=== PATIENT | female | born 1965 | race Caucasian/White ===

== ENCOUNTER 2016-11-21 11:40 | Outpatient (CLI) ==
[2016-08-22 18:55] VITALS: BMI 22.6
--- NOTE | 2016-11-21 13:00 | DI ---
Examination: Two radiographic images of the chest. Comparison: 07/24/2016. Reason for study: Cough and weakness. FINDINGS: No pneumothorax, pleural effusion, focal consolidation. The cardiac silhouette is not en larged. Mild degenerative disease is seen in the thoracic spine. Impression: No acute cardiopulmonary findings.
== END 2016-11-21 11:41 | disposition home or self-care (01) ==
LOC: RAD 11:40
PROVIDERS: ATTEND Family Medicine
DX: R05 Cough (principal); R53.1 Weakness

== ENCOUNTER 2017-01-21 04:38 | Outpatient (CLI) ==
[2017-01-20 14:40] VITALS: BMI 21.7
== END 2017-01-21 04:39 ==
LOC: AMBL 04:38
PROVIDERS: ATTEND Emergency Medicine
DX: J18.9 Pneumonia, unspecified organism (principal)

== ENCOUNTER 2017-04-02 22:11 | Emergency (ER) ==
[2017-04-02 22:13] VITALS: BMI 21.7
[2017-04-02 22:23] VITALS: BP 122/83; TEMP 99.1
[2017-04-02] MEDS ORDERED: PERCOCET 10-325 PO STA (22:33)
--- NOTE | 2017-04-02 22:36 | ED.PDOC ---
General ED Provider: Dr. ALEJANDRA JEFF Chief Complaint: Non-specific Complaint Stated Complaint: pATIENT RAN OUT OF HER oXYCODONE,she did not get to see Dr CHAIREZ @ [address], on 03/26-. needs some help with pain Time Seen by Physician: 22:33 Mode of Arrival: Walk-In Information Source: Patient Primary Care Provider: TANO MIN Nursing and Triage Documentation Reviewed and Agree: Yes Musculoskeletal Complaint Exam - Back Pain Complaint/Exam Mechanism of Injury: Reports: No known trauma Symptoms Are: Still present Timing: Constant Episodes Lasting: Hours Initial Severity: Severe Current Severity: Moderate Location: Reports: Discrete Character: Reports: Aching, Throbbing Aggravating: Reports: Movements, Lifting Alleviating: Reports: None Associated Signs and Symptoms: Denies: Swelling, Redness, Bruising, Fever, Weakness, Numbness, Tingling, Abdominal pain, Flank pain, Bladder incontinence, Bowel incontinence, Weight loss, Pain with weight bearing Related History: Reports: Similar episode TAD Risk Factors: Reports: None AAA Risk Factors: Reports: None Cauda Equina Risk Factors: Reports: None Epidural Abcess Risk Factors: Reports: None Related Surgical History: Reports: None Focal Tenderness: Yes Paraspinal Muscle Tenderness: Yes Paraspinal Muscle Spasm: Yes Scoliosis: No Lordosis: No SLR Test: Right Positive, Left Negative Focal Weakness: Present: None Focal Sensory Loss: Present: None Gait: Present: Normal Differential Diagnoses: Herniated Disk, Strain Review of Systems - Review Of Systems Constitutional: Reports: No symptoms Eyes: Reports: No symptoms Ears, Nose, Mouth, Throat: Reports: No symptoms Respiratory: Reports: No symptoms Cardiac: Reports: No symptoms GI: Reports: No symptoms : Reports: No symptoms Musculoskeletal: Reports: Back pain Skin: Reports: No symptoms Neurological: Reports: No symptoms Endocrine: Reports: No symptoms Hematologic/Lymphatic: Reports: No symptoms All Other Systems: Reviewed and Negative Past Medical History - Past Medical History Previously Healthy: Yes Endocrine: Reports: None Cardiovascular: Reports: None Respiratory: Reports: COPD Hematological: Reports: None Gastrointestinal: Reports: None Genitourinary: Reports: None Neuro/Psych: Reports: Depression, 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,SPINAL ) Musculoskeletal: Reports: Arthritis, Back Pain (CHRONIC BACK PAIN,SPINAL STENOSIS) Cancer: Reports: None Last Menstrual Period: 1999 Other Pertinent Past Medical History: RA,OSTEOPOROSIS, OCD, MYALGIA,MYOSITIS, - Surgical History General Surgical History: Reports: Hysterectomy, , Appendectomy, Hernia Repair (RIGHT GROIN HERNIA REPAIR ) - Family History Family History: Reports: Unknown - Social History Smoking Status: Current every day smoker, Heavy tobacco smoker Smoking Cessation Counseling Time: > 3 min - 10 min Hx Substance Use: No Alcohol Screening: None - Immunizations Tetanus Shot up to Date: Yes Physical Exam - Physical Exam Appearance: Ill-appearing, Thin Pain Distress: Moderate Eyes: PALMER, EOMI, Conjunctiva clear ENT: Ears normal, Nose normal, Oropharynx normal Respiratory: Airway patent, Breath sounds clear, Breath sounds equal, Respirations nonlabored Cardiovascular: RRR, Pulses normal, No rub, No murmur GI/: Soft, Nontender, No masses, Bowel sounds normal, No Organomegaly Musculoskeletal: Normal strength, ROM intact, No edema, No calf tenderness Skin: Warm, Dry, Normal color Neurological: Sensation intact, Motor intact, Reflexes intact, Cranial nerves intact, Alert, Oriented Psychiatric: Affect appropriate, Mood appropriate Critical Care Note - Critical Care Note Total Time (mins): 0 Course - Course Orders, Labs, Meds: Orders Category Date Time Status Oxycodone-Acetaminophen 10-325 [Percocet 10-325] MEDS 04/02/17 22:33 Stat 1 tab PO ONCE STA Medications Generic Name Dose Route Start Last Admin Trade Name Freq PRN Reason Stop Dose Admin Oxycodone/Acetaminophen 1 tab 04/02/17 22:33 Percocet 10-325 PO 04/02/17 22:34 ONCE STA Vital Signs: Temp Pulse Resp BP Pulse Ox 04/02/17 22:13 99.1 F 108 H 20 122/83 97 Departure - Departure Time of Disposition: 22:36 Disposition: HOME SELF-CARE Discharge Problem: Sciatica Qualifiers: Laterality: right Qualifier Code: (M54.31) Sciatica, right side Instructions: Lumbar Radiculopathy (ED) Condition: Stable Pt referred to PMD for follow-up: Yes Additional Instructions: Needs f/u with Dr CHAIREZ, Given for 2 days Dependency and abuse discussed Prescriptions: Oxycodone-Acetaminophen 10-325 [Percocet 10-325] 1 tab PO Q8H #6 tablet Allergies/Adverse Reactions: Allergies ciprofloxacin [From Cipro] Adverse Reaction (Verified 04/02/17 22:17) ciprofloxacin HCl [From Cipro] Adverse Reaction (Verified 04/02/17 22:17) ibuprofen Adverse Reaction (Verified 04/02/17 22:17) morphine Adverse Reaction (Verified 04/02/17 22:17) Penicillins Adverse Reaction (Verified 04/02/17 22:17) ETARIE Adverse Reaction (Uncoded 04/02/17 22:17) Home Medications: Ambulatory Orders Cyclobenzaprine HCl [Flexeril] 10 mg PO BID 12/25/14 Duloxetine HCl [Cymbalta] 60 mg PO DAILY 12/25/14 Oxycodone HCl/Acetaminophen [Percocet 10-325 mg Tablet] 1 tab PO Q4H 12/25/14 Lorazepam [Ativan] 1 mg PO BEDTIME 04/17/16 Pregabalin [Lyrica] 100 mg PO BID 04/17/16 Aspirin/Acetaminophen/Caffeine [Excedrin Migraine Caplet] 2 each PO Q6HR PRN 05/31 Oxycodone-Acetaminophen 10-325 [Percocet 10-325] 1 tab PO Q8H #6 tablet Disposition Discussed With: Patient, Family
[2017-04-02] MEDS ORDERED: PERCOCET 10-325 ONE (22:45)
== END 2017-04-02 22:45 | disposition home or self-care (01) ==
LOC: ED 22:11
DX: M54.31 Sciatica, right side (principal); F17.210 Nicotine dependence, cigarettes, uncomplicated; Z79.899 Other long term (current) drug therapy
CPT/HCPCS: 99283

== ENCOUNTER 2017-06-19 14:27 | Outpatient (CLI) ==
--- NOTE | 2017-06-19 16:11 | DI ---
EXAM: PA and lateral views of the chest HISTORY: Chronic obstructive pulmonary disease COMPARISON: Chest x-ray 11/21/2016 FINDINGS: The cardiomediastinal silhouette is normal. Calcified granulomas noted in the mid right lung. There is no pneumothorax or pleural effusion. There is no consolidation, nodule or mass. Th e osseous structures are unremarkable. IMPRESSION: No acute cardiopulmonary process
== END 2017-06-19 14:28 | disposition home or self-care (01) ==
LOC: RAD 14:27
PROVIDERS: ATTEND Family Medicine
DX: J44.9 Chronic obstructive pulmonary disease, unspecified (principal); J18.9 Pneumonia, unspecified organism; R05 Cough

== ENCOUNTER 2017-06-25 16:19 | Outpatient (CLI) ==
[2017-06-25 16:53] LABS: CREATININE 0.96 mg/dL (0.60-1.30)
== END 2017-06-25 16:20 | disposition home or self-care (01) ==
LOC: LAB 16:19
PROVIDERS: ATTEND Family Medicine
DX: R93.8 Abnormal findings on diagnostic imaging of other specified body structures (principal)
CPT/HCPCS: 36415; 82565

== ENCOUNTER 2017-06-27 08:09 | Outpatient (CLI) | payer OTHER ==
--- NOTE | 2017-06-27 09:31 | CT ---
EXAM: CT chest with contrast. HISTORY: Chronic obstructive pulmonary disease. Abnormal chest radiograph. Nodular densities in farshad th lungs on previous chest CT. COMPARISON: Chest CT 01/20/2017. Chest radiograph 06/19/2017. TECHNIQUE: Multiple axial images of the chest were obtained following intravenous administration of 75 mL of Omnipaque 350, low osmolar. Images were reformatted in the sagittal and coronal planes. FINDINGS: Nonenlarged mediastinal and hilar lymph nodes are present, some of which are calcified. H eart size is normal. There is no pericardial effusion. Mild atherosclerotic calcifications present. Ascending thoracic aorta measures up to 3.2 cm diameter. Bilateral ground-glass opacities seen throughout both upper lobes which are similar to the prior exam ination, with suggestion of centrilobular appearance with peripheral sparing. A noncalcified right u pper lobe nodule noted on the prior study is decreased in size, now measuring 0.3 cm on axial image 1 7. 0.3 cm left lower lobe nodule on axial image 48 is stable. The lungs otherwise clear without ple ural effusion or pneumothorax. No acute abnormality identified in the upper abdomen. Osseous structures are within normal limits fo r the patient's age. IMPRESSION: 1. Stable upper lobe predominant ground-glass opacities in a centrilobular distribution. Consider h ypersensitivity pneumonitis and respiratory bronchiolitis. 2. Decreased size of right upper lobe micronodule, now measuring 0.3 cm. Stable left lower lobe micr onodule pre
== END 2017-06-27 08:10 | disposition home or self-care (01) ==
LOC: RAD 08:09
PROVIDERS: ATTEND Family Medicine
DX: R93.8 Abnormal findings on diagnostic imaging of other specified body structures (principal)

== ENCOUNTER 2017-08-10 18:25 | Emergency (ER) ==
[2017-08-10 18:34] VITALS: BP 175/76; TEMP 98.2; BMI 21.3
[2017-08-10] MEDS ORDERED: DECADRON 4 MG/ML SDV IM STA (19:10)
--- NOTE | 2017-08-10 19:13 | ED.PDOC ---
General ED Provider: Dr. ALEJANDRA JEFF Chief Complaint: Back Pain Stated Complaint: started with mid back pain since noon, took pain medication not helped, worried about having Pneumonia,. as she is prone for it Time Seen by Physician: 19:11 Mode of Arrival: Walk-In Information Source: Patient Primary Care Provider: TNAO MIN Nursing and Triage Documentation Reviewed and Agree: Yes Musculoskeletal Complaint Exam - Back Pain Complaint/Exam Mechanism of Injury: Reports: No known trauma Symptoms Are: Still present Timing: Constant Episodes Lasting: Seconds Initial Severity: Moderate Current Severity: Moderate Location: Reports: Discrete Character: Reports: Aching, Throbbing Aggravating: Reports: Movements, Cough Alleviating: Reports: None Associated Signs and Symptoms: Denies: Swelling, Redness, Bruising, Fever, Weakness, Numbness, Tingling, Abdominal pain, Flank pain, Bladder incontinence, Bowel incontinence, Weight loss, Pain with weight bearing Related History: Reports: Similar episode TAD Risk Factors: Reports: None AAA Risk Factors: Reports: None Cauda Equina Risk Factors: Reports: None Epidural Abcess Risk Factors: Reports: None Related Surgical History: Reports: None Focal Tenderness: Yes Paraspinal Muscle Tenderness: Yes Paraspinal Muscle Spasm: Yes Scoliosis: No Lordosis: No Focal Weakness: Present: None Focal Sensory Loss: Present: None Gait: Present: Normal Differential Diagnoses: Strain, Other (Pneumonia) Review of Systems - Review Of Systems Constitutional: Reports: No symptoms Eyes: Reports: No symptoms Ears, Nose, Mouth, Throat: Reports: No symptoms Respiratory: Reports: Cough Cardiac: Reports: No symptoms GI: Reports: No symptoms : Reports: No symptoms Musculoskeletal: Reports: Back pain Skin: Reports: No symptoms Neurological: Reports: No symptoms Endocrine: Reports: No symptoms Hematologic/Lymphatic: Reports: No symptoms All Other Systems: Reviewed and Negative Past Medical History - Past Medical History Previously Healthy: Yes Endocrine: Reports: None Cardiovascular: Reports: None Respiratory: Reports: COPD Hematological: Reports: None Gastrointestinal: Reports: None Genitourinary: Reports: None Neuro/Psych: Reports: Depression, 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,SPINAL ) Musculoskeletal: Reports: Arthritis, Back Pain (CHRONIC BACK PAIN,SPINAL STENOSIS) Cancer: Reports: None Last Menstrual Period: n/a Other Pertinent Past Medical History: RA,OSTEOPOROSIS, OCD, MYALGIA,MYOSITIS, - Surgical History General Surgical History: Reports: Hysterectomy, , Appendectomy, Hernia Repair (RIGHT GROIN HERNIA REPAIR ) - Family History Family History: Reports: Unknown - Social History Smoking Status: Current every day smoker, Heavy tobacco smoker Hx Substance Use: No Alcohol Screening: None Physical Exam - Physical Exam Appearance: Well-appearing, No pain distress, Well-nourished Eyes: PALMER, EOMI, Conjunctiva clear ENT: Ears normal, Nose normal, Oropharynx normal Respiratory: Airway patent, Breath sounds clear, Breath sounds equal, Respirations nonlabored Cardiovascular: RRR, Pulses normal, No rub, No murmur GI/: Soft, Nontender, No masses, Bowel sounds normal, No Organomegaly Musculoskeletal: Normal strength, ROM intact, No edema, No calf tenderness Skin: Warm, Dry, Normal color Neurological: Sensation intact, Motor intact, Reflexes intact, Cranial nerves intact, Alert, Oriented Psychiatric: Affect appropriate, Mood appropriate Interpretation - Radiology Interpretation Radiology Interpretation By: Radiologist Radiology Results: Negative Exam Interpreted: CXR Critical Care Note - Critical Care Note Total Time (mins): 0 Course - Course Orders, Labs, Meds: Orders Category Date Time Status Dexamethasone 4 mg/ml Inj [Decadron 4 mg/ml Sdv] MEDS 08/10/17 19:10 Discontinued 4 mg IM ONCE STA CHEST, 2 VIEWS PA & LAT Stat RADS 08/10/17 19:10 Completed Medications Discontinued Medications Generic Name Dose Route Start Last Admin Trade Name Freq PRN Reason Stop Dose Admin Dexamethasone Sodium Phosphate 4 mg 08/10/17 19:10 08/10/17 19:29 Decadron 4 Mg/Ml Sdv IM 08/10/17 19:11 4 mg ONCE STA Administration Vital Signs: Temp Pulse Resp BP Pulse Ox 08/10/17 18:30 98.2 F 110 H 16 175/76 H 97 Departure - Departure Time of Disposition: 20:05 Disposition: HOME SELF-CARE Discharge Problem: Backache Instructions: Chronic Back Pain (ED) Condition: Good Pt referred to PMD for follow-up: No Additional Instructions: continue taking Pain medications, hot pack Allergies/Adverse Reactions: Allergies ciprofloxacin [From Cipro] Adverse Reaction (Verified 08/10/17 18:35) ciprofloxacin HCl [From Cipro] Adverse Reaction (Verified 08/10/17 18:35) ibuprofen Adverse Reaction (Verified 08/10/17 18:35) morphine Adverse Reaction (Verified 08/10/17 18:35) Penicillins Adverse Reaction (Verified 08/10/17 18:35) ETARIE Adverse Reaction (Uncoded 04/02/17 22:17) Home Medications: Ambulatory Orders Cyclobenzaprine HCl [Flexeril] 10 mg PO BID 12/25/14 Duloxetine HCl [Cymbalta] 60 mg PO DAILY 12/25/14 Oxycodone HCl/Acetaminophen [Percocet 10-325 mg Tablet] 1 tab PO Q4H 12/25/14 Lorazepam [Ativan] 1 mg PO BEDTIME 04/17/16 Pregabalin [Lyrica] 100 mg PO BID 04/17/16 Aspirin/Acetaminophen/Caffeine [Excedrin Migraine Caplet] 2 each PO Q6HR PRN 05/31 Disposition Discussed With: Patient, Family
--- NOTE | 2017-08-10 20:01 | DI ---
Exam: Two x-rays of the chest. Comparison: CT chest performed 06/27/2017. Reason for exam: Cough. FINDINGS: No pneumothorax, pleural effusion, or focal consolidation. The cardiac silhouette is not enlarged. The imaged osseous structures appear grossly unremarkable without acute fracture. Impression: No acute cardiopulmonary process.
== END 2017-08-10 20:14 | disposition home or self-care (01) ==
LOC: ED 18:25
DX: M54.9 Dorsalgia, unspecified (principal); F17.210 Nicotine dependence, cigarettes, uncomplicated
CPT/HCPCS: 96372; 99282

== ENCOUNTER 2017-09-12 17:50 | Emergency (ER) ==
[2017-09-12 17:55] VITALS: BP 128/88; TEMP 99.3; BMI 20.7
[2017-09-12] MEDS ORDERED: ZOFRAN 4 MG/2 ML IM STA (18:03)
[2017-09-12] MEDS ORDERED: DILAUDID 2 MG/ML SYRINGE IM STA (18:03)
--- NOTE | 2017-09-12 18:06 | ED.PDOC ---
General ED Provider: Dr. SHEILA MEJIA Chief Complaint: Headache Stated Complaint: headache Time Seen by Physician: 18:00 Mode of Arrival: Walk-In Information Source: Patient Exam Limitations: No limitations Primary Care Provider: TANO MIN Nursing and Triage Documentation Reviewed and Agree: Yes Neurological Complaint Exam - Headache Complaint/Exam Onset: Gradual Duration: today Symptoms Are: Still present Timing: Constant Episodes Lasting: Hours Worst Headache Ever: No Initial Severity: Moderate Current Severity: Moderate Location: Frontal, Temporal Character: Reports: Throbbing, Typical headache, Migraine Aggravating: Reports: Bright lights Alleviating: Reports: None Associated Signs and Symptoms: Denies: Dizziness, Seizure, Nausea, Vomiting, Sinus pressure, Fever, Neck pain, Neck stiffness, Decreased LOC, Visual changes Related History: Reports: Similar episode Related Surgical History: Reports: None SAH Risk Factors: Reports: None Meningitis Risk Factors: Reports: None SDH Risk Factors: Reports: None Temporal Arteritis Risk Factors: Reports: Female, Normal Head CT Within Last 12 Months: Yes Fundoscopic Exam: Present: Normal Findings Papilledema Present: No Temporal Artery Tenderness: Present: None Sinus Tenderness: Present: None TMJ Tenderness: Present: None Glascow Coma Scale (see protocol): 15 Meningeal Signs Positive: No Pain on Passive Flexion-Positive Kernig's: No Focal Weakness: Present: None Focal Sensory Loss: Present: None Gait: Normal Nystagmus Present: Yes Gag Reflex Present: Yes Babinski Sign: Negative Right, Negative Left Differential Diagnoses: Migraine, Tension Headache Review of Systems - Review Of Systems Constitutional: Reports: No symptoms Eyes: Reports: No symptoms Ears, Nose, Mouth, Throat: Reports: No symptoms Respiratory: Reports: No symptoms Cardiac: Reports: No symptoms GI: Reports: No symptoms : Reports: No symptoms Musculoskeletal: Reports: No symptoms Skin: Reports: No symptoms Neurological: Reports: Headache Endocrine: Reports: No symptoms Hematologic/Lymphatic: Reports: No symptoms All Other Systems: Reviewed and Negative Past Medical History - Past Medical History Previously Healthy: Yes Endocrine: Reports: None Cardiovascular: Reports: None Respiratory: Reports: COPD Hematological: Reports: None Gastrointestinal: Reports: None Genitourinary: Reports: None Neuro/Psych: Reports: Depression, 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,SPINAL ) Musculoskeletal: Reports: Arthritis, Back Pain (CHRONIC BACK PAIN,SPINAL STENOSIS) Cancer: Reports: None Last Menstrual Period: n/a Other Pertinent Past Medical History: RA,OSTEOPOROSIS, OCD, MYALGIA,MYOSITIS, - Surgical History General Surgical History: Reports: Hysterectomy, , Appendectomy, Hernia Repair (RIGHT GROIN HERNIA REPAIR ) - Family History Family History: Reports: Unknown - Social History Smoking Status: Current every day smoker, Heavy tobacco smoker Hx Substance Use: No Alcohol Screening: None Physical Exam - Physical Exam Appearance: Well-appearing, No pain distress, Well-nourished Eyes: PALMER, EOMI, Conjunctiva clear ENT: Ears normal, Nose normal, Oropharynx normal Respiratory: Airway patent, Breath sounds clear, Breath sounds equal, Respirations nonlabored Cardiovascular: RRR, Pulses normal, No rub, No murmur GI/: Soft, Nontender, No masses, Bowel sounds normal, No Organomegaly Musculoskeletal: Normal strength, ROM intact, No edema, No calf tenderness Skin: Warm, Dry, Normal color Neurological: Sensation intact, Motor intact, Reflexes intact, Cranial nerves intact, Alert, Oriented Psychiatric: Affect appropriate, Mood appropriate Critical Care Note - Critical Care Note Total Time (mins): 0 Course - Course Orders, Labs, Meds: Orders Category Date Time Status Hydromorphone HCl/Pf [Dilaudid 2 mg/ml Syringe] MEDS 09/12/17 18:03 Stat 0.5 mg IM ONCE STA Ondansetron HCl/Pf [Zofran 4 mg/2 ml] MEDS 09/12/17 18:03 Stat 4 mg IM ONCE STA Medications Discontinued Medications Generic Name Dose Route Start Last Admin Trade Name Freq PRN Reason Stop Dose Admin Hydromorphone HCl 0.5 mg 09/12/17 18:03 Dilaudid 2 Mg/Ml Syringe IM 09/12/17 18:04 ONCE STA Ondansetron HCl 4 mg 09/12/17 18:03 Zofran 4 Mg/2 Ml IM 09/12/17 18:04 ONCE STA Vital Signs: Temp Pulse Resp BP Pulse Ox 09/12/17 17:50 99.3 F 112 H 16 128/88 95 Departure - Departure Time of Disposition: 18:06 Disposition: HOME SELF-CARE Discharge Problem: Headache Instructions: Tension Headache (ED), Migraine Headache (ED) Condition: Good Pt referred to PMD for follow-up: Yes Allergies/Adverse Reactions: Allergies ciprofloxacin [From Cipro] Adverse Reaction (Verified 09/12/17 17:55) ciprofloxacin HCl [From Cipro] Adverse Reaction (Verified 09/12/17 17:55) ibuprofen Adverse Reaction (Verified 09/12/17 17:55) morphine Adverse Reaction (Verified 09/12/17 17:55) Penicillins Adverse Reaction (Verified 09/12/17 17:55) ETARIE Adverse Reaction (Uncoded 04/02/17 22:17) Home Medications: Ambulatory Orders Cyclobenzaprine HCl [Flexeril] 10 mg PO BID 12/25/14 Duloxetine HCl [Cymbalta] 60 mg PO DAILY 12/25/14 Oxycodone HCl/Acetaminophen [Percocet 10-325 mg Tablet] 1 tab PO Q4H 12/25/14 Lorazepam [Ativan] 1 mg PO BEDTIME 04/17/16 Pregabalin [Lyrica] 100 mg PO BID 04/17/16 Aspirin/Acetaminophen/Caffeine [Excedrin Migraine Caplet] 2 each PO Q6HR PRN 05/31
== END 2017-09-12 18:35 | disposition home or self-care (01) ==
LOC: ED 17:50
DX: R51 Headache (principal); F17.210 Nicotine dependence, cigarettes, uncomplicated
CPT/HCPCS: 96372; 99283

== ENCOUNTER 2017-09-16 09:29 | Emergency (ER) ==
[2017-09-16 09:30] VITALS: BMI 20.7
[2017-09-16 09:32] VITALS: BP 116/72; TEMP 99.4
--- NOTE | 2017-09-16 09:44 | ED.PDOC ---
General ED Provider: Dr. IGNACIO DIETZ-ER Chief Complaint: Earache Stated Complaint: my ear hurts and it drains Time Seen by Physician: 09:35 Mode of Arrival: Walk-In Information Source: Patient Exam Limitations: No limitations Primary Care Provider: TANO HARDY Nursing and Triage Documentation Reviewed and Agree: Yes EENT Complaint Exam - Ear Complaint/Exam Onset/Duration: 24 hrs Symptoms Are: Still present Timing: Constant Initial Severity: Mild Current Severity: Mild Character: Reports: Dull pain Aggravating: Reports: Tugging on ear Alleviating: Reports: None Associated Signs and Symptoms: Reports: URI symptoms, Pain to external ear. Denies: Ear trauma, Ear swelling, Discharge, Fever, Hearing loss, Bleeding, Sore throat, Headache, Foreign body sensation, Rash Vesicles to External Pinna: No Vesicles to Tragus: No External Canal: Edema, Erythema Tympanic Membrane: Erythema, Dullness Differential Diagnoses: Otitis Externa, Otitis Media Review of Systems - Review Of Systems Constitutional: Reports: No symptoms Eyes: Reports: No symptoms Ears, Nose, Mouth, Throat: Reports: Ear pain Respiratory: Reports: No symptoms Cardiac: Reports: No symptoms GI: Reports: No symptoms : Reports: No symptoms Musculoskeletal: Reports: No symptoms Skin: Reports: No symptoms Neurological: Reports: No symptoms Endocrine: Reports: No symptoms Hematologic/Lymphatic: Reports: No symptoms All Other Systems: Reviewed and Negative Past Medical History - Past Medical History Previously Healthy: Yes Endocrine: Reports: None Cardiovascular: Reports: None Respiratory: Reports: COPD Hematological: Reports: None Gastrointestinal: Reports: None Genitourinary: Reports: None Neuro/Psych: Reports: Depression, 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,SPINAL ) Musculoskeletal: Reports: Arthritis, Back Pain (CHRONIC BACK PAIN,SPINAL STENOSIS) Cancer: Reports: None Last Menstrual Period: none Other Pertinent Past Medical History: RA,OSTEOPOROSIS, OCD, MYALGIA,MYOSITIS, - Surgical History General Surgical History: Reports: Hysterectomy, , Appendectomy, Hernia Repair (RIGHT GROIN HERNIA REPAIR ) - Family History Family History: Reports: Unknown - Social History Smoking Status: Current every day smoker, Heavy tobacco smoker Hx Substance Use: No Alcohol Screening: None Physical Exam - Physical Exam Appearance: Well-appearing, No pain distress, Well-nourished Eyes: PALMER, EOMI, Conjunctiva clear ENT: Ears normal, Nose normal, Oropharynx normal, Erythema Respiratory: Airway patent, Breath sounds clear, Breath sounds equal, Respirations nonlabored Cardiovascular: RRR, Pulses normal, No rub, No murmur GI/: Soft, Nontender, No masses, Bowel sounds normal, No Organomegaly Musculoskeletal: Normal strength, ROM intact, No edema, No calf tenderness Skin: Warm, Dry, Normal color Neurological: Sensation intact, Motor intact, Reflexes intact, Cranial nerves intact, Alert, Oriented Psychiatric: Affect appropriate, Mood appropriate Critical Care Note - Critical Care Note Total Time (mins): 0 Course - Course Vital Signs: Temp Pulse Resp BP Pulse Ox 09/16/17 09:30 99.4 F 75 18 116/72 100 Departure - Departure Time of Disposition: 09:44 Disposition: HOME SELF-CARE Discharge Problem: Otitis media Qualifiers: Otitis media type: unspecified Chronicity: acute Qualified Code(s): H66.90 - Otitis media, unspecified, unspecified ear Otitis externa Qualifiers: Otitis externa type: unspecified type Chronicity: acute Laterality: right Qualified Code(s): H60.501 - Unspecified acute noninfective otitis externa, right ear Instructions: Ear Infection (ED) Condition: Good Pt referred to PMD for follow-up: Yes Additional Instructions: zpack--cortisporin otic drops 5 drops into the ear bid x 7 days--f/u with dr hardy next week Allergies/Adverse Reactions: Allergies ciprofloxacin [From Cipro] Adverse Reaction (Verified 09/16/17 09:32) ciprofloxacin HCl [From Cipro] Adverse Reaction (Verified 09/16/17 09:32) ibuprofen Adverse Reaction (Verified 09/16/17 09:32) morphine Adverse Reaction (Verified 09/16/17 09:32) Penicillins Adverse Reaction (Verified 09/16/17 09:32) ETARIE Adverse Reaction (Uncoded 04/02/17 22:17) Home Medications: Ambulatory Orders Cyclobenzaprine HCl [Flexeril] 10 mg PO BID 12/25/14 Duloxetine HCl [Cymbalta] 60 mg PO DAILY 12/25/14 Oxycodone HCl/Acetaminophen [Percocet 10-325 mg Tablet] 1 tab PO Q4H 12/25/14 Lorazepam [Ativan] 1 mg PO BEDTIME 04/17/16 Pregabalin [Lyrica] 100 mg PO BID 04/17/16 Aspirin/Acetaminophen/Caffeine [Excedrin Migraine Caplet] 2 each PO Q6HR PRN 05/31 Disposition Discussed With: Patient, Family
== END 2017-09-16 09:54 | disposition home or self-care (01) ==
LOC: ED 09:29
DX: H66.90 Otitis media, unspecified, unspecified ear (principal); H60.501 Unspecified acute noninfective otitis externa, right ear; F17.210 Nicotine dependence, cigarettes, uncomplicated
CPT/HCPCS: 99282

== ENCOUNTER 2017-10-10 10:16 | Outpatient (CLI) ==
[2017-10-10 10:49] LABS: CREATININE 0.77 mg/dL (0.60-1.30)
--- NOTE | 2017-10-10 12:01 | CT ---
EXAM: CT Head with and without contrast. HISTORY: Worsening headache. Light sensitivity. COMPARISON: None available. TECHNIQUE: Multiple axial images of the brain were obtained from the skull base through the vertex p rior to and following intravenous administration of 75 mL of Omnipaque 350, low osmolar. Multiplanar reformats were provided. FINDINGS: There is no intracranial hemorrhage or extraaxial collection. The singer-white differentiat ion is maintained without evidence for acute large vascular territory infarction. The cortical sulci and basal cisterns are well visualized. No areas of abnormal enhancement are identified. There is no hydrocephalus, mass effect, or midline shift. Moderate left sphenoid sinus mucosal thickening not ed. Otherwise, the paranasal sinuses and mastoid air cells are clear. The calvarium is intact. IMPRESSION: 1. No acute intracranial abnormality. 2. Left sphenoid sinusitis.
== END 2017-10-10 10:17 | disposition home or self-care (01) ==
LOC: RAD 10:16
PROVIDERS: ATTEND Family Medicine
DX: R51 Headache (principal)
CPT/HCPCS: 36415; 82565

== ENCOUNTER 2018-07-03 10:38 | Outpatient (CLI) ==
--- NOTE | 2018-07-03 12:41 | MRI ---
EXAM: MRI of the right knee without contrast COMPARISON: Right knee radiographs 06/24/2018. HISTORY: Right knee pain extending up the leg. No known injury. TECHNIQUE: Multiplanar noncontrast MR images of the right knee were acquired using a 1.2 Maris magne t. The submitted images are moderately limited by patient motion artifact. FINDINGS: Assessment of the medial meniscus is overall limited by artifact. There is intrasubstance degeneration of the meniscus without a definite surfacing tear. Lateral meniscus is intact. Intact anterior and posterior cruciate ligament fibers are identified though there is thinning of the anterior cruciate ligament suggesting sequela of previous sprain/partial tear. The medial collatera l ligament, lateral collateral ligament complex and posterolateral corner ligaments are intact. Mild patellar/quadriceps tendinosis. There is edema within the superior and lateral portion of Hoffa's f at pad which is nonspecific but can be seen in the setting of patellar tendon lateral femoral condyle friction syndrome. Scarring/fibrosis within the anterior subcutaneous tissues at the level of the p roximal patellar tendon and lower patella with foci of susceptibility artifact anteriorly which may r epresent small metallic foreign bodies. No drainable fluid collection. There is chondromalacia patella with mild thinning of the cartilage of the patella. Mild thinning of the cartilage in the medial compartment. No evidence of an acute fracture, osteomyelitis or focal m arrow lesion. Small joint effusion. Slit-like popliteal cyst. No osteochondral body. IMPRESSION: 1. No definite evidence of a meniscal tear. 2. Mild medial and patellofemoral compartment osteoarthrosis. Small joint effusion with a slit-like popliteal cyst. 3. Mild thinning of the anterior cruciate ligament suggesting sequela of a sprain/low grade partial tear with intact fibers identified. 4. Patellar/quadriceps tendinosis. Edema within the superior and lateral portion of Hoffa's fat pad which is nonspecific but can be seen in the setting of patellar tendon lateral femoral condyle fricti on syndrome. Scarring/fibrosis involving the anterior subcutaneous tissues without a drainable fluid collection.
== END 2018-07-03 10:39 | disposition home or self-care (01) ==
LOC: RAD 10:38
PROVIDERS: ATTEND Family Medicine
DX: M25.561 Pain in right knee (principal)

== ENCOUNTER 2018-08-20 08:04 | Day surgery (SDC) ==
[2018-08-20 09:21] VITALS: TEMP 97.9
[2018-08-20] MEDS ORDERED: DIPRIVAN 20 ML VIAL IVP ONE (09:54)
[2018-08-20] MEDS ORDERED: LIDOCAINE HCL 2% LUER-JET ONE (09:54)
[2018-08-20] MEDS ORDERED: VERSED ONE (09:54)
--- NOTE | 2018-08-21 12:37 | OP ---
INDICATIONS FOR PROCEDURE: 52-year-old female presents for evaluation of short segment Santana's. She also most recently found to have heme positive stools. She denies any symptoms from a GI standpoint. MEDICATIONS: SEE ANESTHESIA NOTES. PROCEDURE: ENDOSCOPY, JEREMIAH BIOPSY, ESOPHAGEAL BIOPSY, INDIAN DILATATION. REPORT: The risks, benefits, alternatives and limitations were discussed in detail with the patient. Informed consent was obtained. After adequate sedation was achieved, the video endoscope was introduced in the posterior pharynx and esophagus under direct vision and I easily advanced down to the second portion of the duodenum. I then slowly withdrew. The duodenal mucosa appeared unremarkable as did the duodenal bulb. In the antrum there were three clean base ulcerations. These were superficial, the largest was approximately 6 to 7 mm in size. They all had a benign appearance. There was erythema present as well consistent with gastritis. Two biopsies from the antral wall and from the body obtained for H. Pylori testing. The body was unremarkable. The scope was retroflexed to look at the cardia and fundus which revealed a small hiatal hernia. The scope was anteflexed and withdrawn back through the esophagus. There was 1 to 2 cm sliding hiatal hernia. The GE junction was slightly irregular. She has a history of Santana's. Four quadrant biopsies were obtained. There is a ring present in the distal esophagus consistent with mild stricturing. The remaining esophagus appeared unremarkable. I advanced the scope back down into the gastric lumen. I placed a guidewire. I then withdrew the scope. Over the guidewire, I easily passed a 54 [place] dilator. The patient tolerated the procedure well with stable vital signs and pulse oximetry throughout. IMPRESSION: 1. GASTRIC ULCERATIONS 2. IRREGULAR GE JUNCTION CONSISTING OF KNOWN SHORT SEGMENT SANTANA'S. 3. DISTAL ESOPHAGEAL STRICTURE DILATED ABOVE. 4. SMALL SLIDING HIATAL HERNIA. RECOMMENDATIONS: 1. She was prescribed Omeprazole when she was in the office, July 11, 2018 , that is not on her medication list. I am going to check with her to see if she is taking this and if not have her initiate it. If she is taking it will increase the dose to b.i.d. 2. Avoid nonsteroidal agents. 3. Await H. Pylori, if positive, will initiate treatment. 4. Await esophageal biopsy results. If there is no dysplasia or atypia, recommend repeat endoscopy examination again in three years. 5. I also suggest repeat endoscopy in 2 to 3 months to assure resolution of the ulcerations. 6. Office visit as needed. ADDENDUM: I talked to Annie after her procedure. She states that she takes Excedrin every once in awhile but not very often. She is not on any nonsteroidal agents. She has been taking Omeprazole 20 mg daily for over one month. I therefore recommend she increase the Omeprazole to b.i.d. She is going to cut out the Excedrin and any other NSAIDs. She agrees to followup endoscopy in 2 to 3 months. CC: DR. PAKO JOSEHP
[2018-08-22 12:50] VITALS: BP 128/66
== END 2018-08-20 11:10 | disposition home or self-care (01) ==
LOC: SURG 08:04
PROVIDERS: ATTEND Internal Medicine Gastroenterology
DX: K22.70 Barrett's esophagus without dysplasia (principal); K44.9 Diaphragmatic hernia without obstruction or gangrene; K25.9 Gastric ulcer, unspecified as acute or chronic, without hemorrhage or perforation; R19.5 Other fecal abnormalities
CPT/HCPCS: 87339

== ENCOUNTER 2018-12-19 16:55 | Emergency (ER) ==
[2018-12-19 16:58] VITALS: BP 102/68; TEMP 97.8; BMI 23.0
[2018-12-19] MEDS ORDERED: TORADOL IM STA (18:36)
[2018-12-19] MEDS ORDERED: NORFLEX IM STA (18:37)
--- NOTE | 2018-12-19 18:40 | ED.PDOC ---
General Stated Complaint: Severe Lt sided low back pain with sciatica symptoms. Sudden onset 6 hrs ago while standing at kitchen sink. No Known trauma or recent injury.Hx similar problem on Rt in Past Time Seen by Physician: 18:15 Mode of Arrival: Walk-In Information Source: Patient Exam Limitations: Clinical condition Nursing and Triage Documentation Reviewed and Agree: Yes Does patient meet sepsis criteria?: No System Inflammatory Response Syndrome: Not Applicable <IGNACIO TOLENTINO - Last Filed: 12/19/18 20:00> <IGNACIO BEDOLLA - Last Filed: 12/19/18 20:18> ED Provider: Dr. IGNACIO BEDOLLA Chief Complaint: Back Pain Primary Care Provider: TANO CAMEJO Sepsis Protocol: For patient's 13 years and over: Temp is 96.8 and below OR 101 and greater Pulse >90 BPM Resp >20/minute Acutely Altered Mental Status Are patient's symptoms suggestive of a new infection, such as: -Pneumonia -Skin, Soft Tissue -Endocarditis -UTI -Bone, Joint Infection -Implantable Device -Acute Abdominal Infection -Wound Infection -Meningitis -Blood Stream Catheter Infection -Unknown Musculoskeletal Complaint Exam - Back Pain Complaint/Exam Mechanism of Injury: Reports: No known trauma Onset/Duration: noontime today Symptoms Are: Still present Timing: Constant Episodes Lasting: Hours Initial Severity: Severe Current Severity: Severe Location: Reports: Radiating Character: Reports: Sharp, Aching Aggravating: Reports: Movements Alleviating: Reports: Position Associated Signs and Symptoms: Denies: Swelling, Redness, Bruising, Fever, Weakness, Numbness, Tingling, Abdominal pain, Flank pain, Bladder incontinence, Bowel incontinence, Weight loss, Pain with weight bearing Related History: Reports: Similar episode TAD Risk Factors: Reports: None AAA Risk Factors: Reports: None Cauda Equina Risk Factors: Reports: None Epidural Abcess Risk Factors: Reports: None Related Surgical History: Reports: None Focal Tenderness: Yes Paraspinal Muscle Tenderness: Yes Paraspinal Muscle Spasm: Yes Scoliosis: No Lordosis: No Kyphosis: No SLR Test: Left Positive, Degrees (30 degrees) Hip Motion Testing Pain: Left Positive Focal Weakness: Present: None Focal Sensory Loss: Present: None Differential Diagnoses: Sprain, Other (Sciatica; Lumbar radiculoathy) <IGNACIO TOLENTINO - Last Filed: 12/19/18 20:00> Review of Systems - Review Of Systems Constitutional: Reports: No symptoms Eyes: Reports: No symptoms Ears, Nose, Mouth, Throat: Reports: No symptoms Respiratory: Reports: No symptoms Cardiac: Reports: No symptoms GI: Reports: No symptoms : Reports: No symptoms Musculoskeletal: Reports: Back pain Skin: Reports: No symptoms Neurological: Reports: No symptoms Endocrine: Reports: No symptoms Hematologic/Lymphatic: Reports: No symptoms All Other Systems: Reviewed and Negative <IGNACIO TOLENTINO - Last Filed: 12/19/18 20:00> Past Medical History - Past Medical History Previously Healthy: Yes Endocrine: Reports: None Cardiovascular: Reports: None Respiratory: Reports: COPD Hematological: Reports: None Gastrointestinal: Reports: None Genitourinary: Reports: None Neuro/Psych: Reports: Depression, 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 States Dr Camejo is watching and followining it) Cancer: Reports: None Last Menstrual Period: n/a Other Pertinent Past Medical History: RA,OSTEOPOROSIS, OCD, MYALGIA,MYOSITIS, - Surgical History General Surgical History: Reports: Hysterectomy, , Appendectomy, Hernia Repair (RIGHT GROIN HERNIA REPAIR ) - Family History Family History: Reports: Unknown - Social History Smoking Status: Current every day smoker, Heavy tobacco smoker Hx Substance Use: No Alcohol Screening: None <IGNACIO TOLENTINO - Last Filed: 12/19/18 20:00> Physical Exam - Physical Exam Appearance: Ill-appearing Ill-appearing: Mild Pain Distress: Severe Eyes: PALMER, EOMI, Conjunctiva clear ENT: Ears normal, Nose normal, Oropharynx normal Neck: Supple Respiratory: Airway patent, Breath sounds clear, Breath sounds equal, Respirations nonlabored Cardiovascular: RRR, Pulses normal, No rub, No murmur GI/: Soft, Nontender, No masses, Bowel sounds normal, No Organomegaly Musculoskeletal: Normal strength, ROM intact, No edema, No calf tenderness, Limited ROM (Lt hip flexion wnl. pos slr) Skin: Warm, Dry, Normal color Neurological: Sensation intact, Motor intact, Reflexes intact, Cranial nerves intact, Alert, Oriented Psychiatric: Affect appropriate, Mood appropriate <IGNACIO TOLENTINO - Last Filed: 12/19/18 20:00> Physician Notification - Case Discussed Physician Notified: Dr Jurado Time of Notification: 20:00 (Reviewed case/await CT results before discharge) <IGNACIO TOLENTINO - Last Filed: 12/19/18 20:00> Critical Care Note - Critical Care Note Total Time (mins): 0 <IGNACIO TOLENTINO - Last Filed: 12/19/18 20:00> Course - Course Hematology/Chemistry: 12/19/18 18:48 12/19/18 18:48 <IGNACIO TOLENTINO - Last Filed: 12/19/18 20:00> - Course Hematology/Chemistry: 12/19/18 18:48 12/19/18 18:48 <IGNACIO BEDOLLA - Last Filed: 12/19/18 20:18> - Course Orders, Labs, Meds: Lab Review 12/19/18 12/19/18 18:48 18:48 WBC 9.03 RBC 3.47 L Hgb 11.4 L Hct 34.8 L MCV 100.3 H MCH 32.9 H MCHC 32.8 RDW Coeff of [place]af[place] 12.9 Plt Count 307 Immature Gran % (Auto) 0.2 Neut % (Auto) 57.2 Lymph % (Auto) 31.6 [place] % (Auto) 8.3 Eos % (Auto) 2.0 Baso % (Auto) 0.7 Immature Gran # (Auto) 0.0 Neut # (Auto) 5.2 Lymph # (Auto) 2.9 [place] # (Auto) 0.8 Eos # (Auto) 0.2 Baso # (Auto) 0.1 ESR 34 H Sodium 138.3 Potassium 4.29 Chloride 105.5 Carbon Dioxide 29.0 Anion Gap 8.09 BUN 14.4 Creatinine 0.86 Estimated GFR (MDRD) 70.00 BUN/Creatinine Ratio 16.74 Glucose 97.0 Calcium 9.00 Total Bilirubin 0.14 L AST 24.2 ALT 14.7 Alkaline Phosphatase 71.7 Total Protein 6.88 Albumin 3.84 Globulin 3.04 Albumin/Globulin Ratio 1.26 Orders Category Date Time Status CBC W/ AUTO DIFF Stat LAB 12/19/18 18:48 Completed COMPREHENSIVE METABOLIC PANEL Stat LAB 12/19/18 18:48 Completed ESR Stat LAB 12/19/18 18:48 Completed Ketorolac Tromethamine [Toradol] MEDS 12/19/18 18:36 Discontinued 30 mg IM ONCE STA Orphenadrine Citrate [Norflex] MEDS 12/19/18 18:37 Discontinued 60 mg IM ONCE STA CT LUMBAR SPINE W/O CONTRAST Stat RADS 12/19/18 19:15 Completed Medications Discontinued Medications Generic Name Dose Route Start Last Admin Trade Name Freq PRN Reason Stop Dose Admin Ketorolac Tromethamine 30 mg 12/19/18 18:36 12/19/18 18:50 Toradol IM 12/19/18 18:37 30 mg ONCE STA Administration Orphenadrine Citrate 60 mg 12/19/18 18:37 12/19/18 18:52 Norflex IM 12/19/18 18:38 60 mg ONCE STA Administration ct scan results discussed with the pateint by justus melton---she understands to talk to dr camejo next week about getting [facility] Vital Signs: Temp Pulse Resp BP Pulse Ox 12/19/18 16:56 97.8 F 107 H 16 102/68 96 Departure - Departure Time of Disposition: 19:25 Pt referred to PMD for follow-up: Yes IPMP verified?: No Disposition Discussed With: Patient <IGNACIO TOLENTINO - Last Filed: 12/19/18 20:00> - Departure Pt referred to PMD for follow-up: Yes IPMP verified?: No Disposition Discussed With: Patient <IGNACIO BEDOLLA - Last Filed: 12/19/18 20:18> - Departure Disposition: HOME SELF-CARE Discharge Problem: Sciatica Qualifiers: Laterality: unspecified laterality Qualified Code(s): M54.30 - Sciatica, unspecified side Instructions: Sciatica (ED), Lumbar Radiculopathy (ED), Lower Back Exercises ( ED) Condition: Fair Additional Instructions: Take meds as directed See Dr Camejo in Follow up apt Prescriptions: Ketorolac Tromethamine [Toradol] 10 mg PO Q6H PRN #20 tablet PRN Reason: Relieve back and hip pain Orphenadrine Citrate 100 mg PO BID PRN #20 tablet.er PRN Reason: Back pain Allergies/Adverse Reactions: Allergies ibuprofen Adverse Reaction (Intermediate, Verified 12/19/18 16:59) GI BLEED ciprofloxacin HCl [From Cipro] Adverse Reaction (Mild, Verified 12/19/18 16:59) Nausea morphine Adverse Reaction (Mild, Verified 12/19/18 16:59) ITCHING AND EDEMA ciprofloxacin [From Cipro] Adverse Reaction (Verified 12/19/18 16:59) Penicillins Adverse Reaction (Verified 12/19/18 16:59) ETARIE Adverse Reaction (Uncoded 04/02/17 22:17) Home Medications: Ambulatory Orders Cyclobenzaprine HCl [Flexeril] 10 mg PO BID 12/25/14 Duloxetine HCl [Cymbalta] 60 mg PO DAILY 12/25/14 Oxycodone HCl/Acetaminophen [Percocet 10-325 mg Tablet] 1 tab PO Q4H 12/25/14 Lorazepam [Ativan] 1 mg PO BEDTIME 04/17/16 Pregabalin [Lyrica] 100 mg PO BID 04/17/16 Aspirin/Acetaminophen/Caffeine [Excedrin Migraine Caplet] 2 each PO Q6HR PRN 05/31 Budesonide/Formoterol Fumarate [Symbicort 160-4.5 Mcg Inhaler] 1 puff INH BID Tiotropium [place] [Spiriva] 18 mcg IH DAILY 11/06/18 Ketorolac Tromethamine [Toradol] 10 mg PO Q6H PRN #20 tablet 12/19/18 Orphenadrine Citrate 100 mg PO BID PRN #20 tablet.er 12/19/18
--- NOTE | 2018-12-19 20:07 | CT ---
EXAM: CT lumbar spine without contrast HISTORY: Severe left low back pain, sciatica COMPARISON: None TECHNIQUE: CT lumbar spine performed without intravenous contrast. Coronal and sagittal reformatted images obtained. FINDINGS: There are four lumbar vertebral bodies. Vertebral bodies normal height. No fracture. Mu ltilevel marginal osteophyte formation. Mild intervertebral disc space narrowing L2-L3. Multilevel marginal osteophyte formation. Multilevel facet arthrosis. 2 mm retrolisthesis of L2 on L3. 2.5 mm anterolisthesis of five on S1. Sacroiliac joints intact with mild degenerative change. Aorta normal in caliber. Moderate atherosclerosis. Mild prominence of the common bile duct is incom pletely imaged T12-L1: No central canal or neural foraminal narrowing. L1-L2: Posterior disc osteophyte complex and facet arthrosis causing mild bilateral neural foraminal narrowing. L2-L3: No central canal or neural foraminal narrowing. L3-L4: Posterior disc osteophyte complex and facet arthrosis causing mild bilateral neural foraminal narrowing. L4-S1: Posterior disc osteophyte complex and facet arthrosis causing mild mild right and moderate lef t neural foraminal narrowing. Additional density in the left neural foraminal region may contribute to narrowing, indeterminate etiology. IMPRESSION: 1. No fracture. 2. Chronic discogenic degenerative disease and facet arthrosis, greatest at L5-S1. Additional densi ty in the left neural foraminal region L5-S1 may contribute to narrowing, indeterminate etiology. Co nsider MRI for further evaluation. 3. Mild prominence of the common bile duct, incompletely imaged. Findings can be correlate with ruddy er function test.
== END 2018-12-19 20:23 | disposition home or self-care (01) ==
LOC: ED 16:55
DX: M54.40 Lumbago with sciatica, unspecified side (principal); F17.210 Nicotine dependence, cigarettes, uncomplicated
CPT/HCPCS: 36415; 80053; 85025; 85651; 96372; 99283

== ENCOUNTER 2018-12-27 10:04 | Outpatient (CLI) ==
--- NOTE | 2018-12-28 02:44 | MRI ---
EXAM: MRI lumbar spine without IV contrast. DATE: 12/27/2018. HISTORY: Acute, severe lumbar back pain. TECHNIQUE: Sagittal and axial T1W and T2W sequences of the lumbar spine along with sagittal IR and c oronal T2W sequences were obtained using 1.2 Maris magnet. No IV contrast. COMPARISON: LS spine series [address] L-spine 12/19/2018. CT chest 06/27/2017. FINDINGS: There are four nef-ldn-lgsfdho lumbar vertebra. There is no lumbar scoliosis. A 1.5 mm r etrolisthesis of L1 relative to L2 and 2.7 mm anterolisthesis of L4 relative to S1 are observed. No other subluxation, acute fracture, osseous malignancy, or pars interarticularis defect is demonstrate d. Lumbar vertebra are normal in height. T1W bone marrow heterogeneity is due to tiny areas of fatt y infiltration. Small osteophytes are noted at L1-2 and L5-S1. Mild disc space narrowing is detecte d at L4-S1. Remaining intervertebral discs are normal in height. Spinous process arthritis is displ ayed at L3-4. No acute sacral fracture or stress reaction is evident. SI joints are unremarkable. Conus medullaris terminates at T12-L1. Visible spinal cord is normal. No retroperitoneal lymphadenopathy, paraspinal mass, or aortic aneurysm is detected. Atherosclerotic plaques are present within the aortic wall. Paraspinal musculature is symmetric bilaterally. Right lobe liver is approximately 16 cm in length, without distinct focal mass. Spleen, adrenal glands, a nd kidneys reveal no abnormality. CBD is 7.5 mm diameter at the pancreatic head level, similar to Se 2017 CT scan. No choledocholithiasis, distinct pancreatic head mass or pancreatitis. Minor pancreatic duct is up to 2.4 mm diameter (slightly prominent). No bowel obstruction or malignancy is demonstrated. Segmental analysis: Segmental analysis: T11-12: Normal. T12-L1: Normal. L1-2: Minor posterior disc bulge does not cause central stenosis. Mild facet arthropathy causes sli ght left foraminal encroachment. L2-3: Normal. L3-4: Minor left foraminal disc bulge and mild bilateral facet arthropathy cause minor left foramina l narrowing. No central canal stenosis. L4-S1: Minor anterolisthesis of L4, pseudodisc bulge, marked facet arthropathy, and mild ligamentum flavum hypertrophy cause minor bilateral foraminal stenoses. Left L4 nerve root contacts the disc bu lge near the lateral margin of the foramen. IMPRESSIONS: 1. Four utl-bfy-uzsxqni lumbar vertebra. 2. Lumbar spine minor spondylosis, minor subluxations, multilevel facet arthropathy (especially L4-S 1), and multilevel DDD. 3. Multilevel lumbar foraminal stenoses (minor). Left L4 nerve root contacts disc bulge near the la teral margin of the foramen, and could be a source for pain/radiculopathy. 4. No lumbar spine central canal stenosis. 5. 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 6. Mild hepatomegaly - etiology uncertain. 7. Mild abdominal aortic atherosclerosis. 8. Persistent mildly prominent CBD and minor pancreatic duct - uncertain etiology and significance.
== END 2018-12-27 10:05 | disposition home or self-care (01) ==
LOC: RAD 10:04
PROVIDERS: ATTEND Family Medicine
DX: M54.16 Radiculopathy, lumbar region (principal); M54.40 Lumbago with sciatica, unspecified side